=== PATIENT | female | born 2000 | race Caucasian/White ===

== ENCOUNTER 2021-07-31 15:57 | Emergency (ER) | payer MEDICAID | END 2021-07-31 17:20 | disposition left against medical advice (07) | LOC: EEVIPCON 15:58 → ER 15:58 | DX: Z53.21 Procedure and treatment not carried out due to patient leaving prior to being seen by health care provider (principal) ==

== ENCOUNTER 2022-10-02 01:32 | Emergency (ER) | payer MEDICAID ==
[~2022-10-02] VITALS: Ht 165.1 cm; Wt 50.0 kg
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
[2022-10-02] MEDS: acetaminophen 325mg tablet PO ONE (06:06)
[2022-10-02] MEDS: ibuprofen tablet 400 MG TABLET PO ONE (06:06)
[2022-10-02 06:10] VITALS: BP 126/75
== END 2022-10-02 06:26 | disposition home or self-care (01) ==
LOC: ER 01:33
DX: S00.11XA Contusion of right eyelid and periocular area, initial encounter (principal); S00.12XA Contusion of left eyelid and periocular area, initial encounter; R51.9 Headache, unspecified; F17.200 Nicotine dependence, unspecified, uncomplicated; F12.10 Cannabis abuse, uncomplicated; Y08.89XA Assault by other specified means, initial encounter; Y93.89 Activity, other specified; Y92.89 Other specified places as the place of occurrence of the external cause; Y99.8 Other external cause status
CPT/HCPCS: 70450; 99284

== ENCOUNTER 2023-03-03 19:03 | Emergency (ER) | payer MEDICAID ==
[~2023-03-03] VITALS: Ht 165.1 cm; Wt 56.8 kg
[2023-03-03 19:24] VITALS: BP 122/82
== END 2023-03-03 19:49 | disposition home or self-care (01) ==
LOC: ER 19:03
DX: S63.611A Unspecified sprain of left index finger, initial encounter (principal); F12.90 Cannabis use, unspecified, uncomplicated; Z72.89 Other problems related to lifestyle; X58.XXXA Exposure to other specified factors, initial encounter; Y93.89 Activity, other specified; Y92.89 Other specified places as the place of occurrence of the external cause; Y99.8 Other external cause status
CPT/HCPCS: 73140; 99283

== ENCOUNTER 2023-04-05 20:29 | Emergency (ER) | payer MEDICAID ==
[~2023-04-05] VITALS: Ht 165.1 cm; Wt 61.4 kg
[2023-04-05 20:35] VITALS: BP 143/83
== END 2023-04-05 22:13 | disposition home or self-care (01) ==
LOC: ER 20:29
DX: S62.601A Fracture of unspecified phalanx of left index finger, initial encounter for closed fracture (principal); F17.200 Nicotine dependence, unspecified, uncomplicated; F12.90 Cannabis use, unspecified, uncomplicated; X58.XXXA Exposure to other specified factors, initial encounter; Y93.89 Activity, other specified; Y92.89 Other specified places as the place of occurrence of the external cause; Y99.8 Other external cause status
CPT/HCPCS: 73130; 99283

== ENCOUNTER 2023-04-28 00:09 | Emergency (ER) | payer MEDICAID ==
[~2023-04-28] VITALS: Ht 165.1 cm; Wt 57.3 kg
[2023-04-28 00:16] VITALS: BP 145/93
[2023-04-28] MEDS ORDERED: TETanus/Pertussis (Acell)/Diphther VAC/PF (Tdap-Adult) 0.5ml syringe IMVAC ONE (01:40)
[2023-04-28] MEDS ORDERED: AMOX-117 PO (02:03)
[2023-04-28] MEDS ORDERED: LIDOcaine 1% W/epiNEPHrine 1:100,000 20ml vial IJ ONE (02:25)
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
[2023-04-28] MEDS ORDERED: HYDR-3965 PO (06:08)
== END 2023-04-28 06:19 | disposition home or self-care (01) ==
LOC: ER 00:09
DX: S81.851A Open bite, right lower leg, initial encounter (principal); F17.200 Nicotine dependence, unspecified, uncomplicated; F12.90 Cannabis use, unspecified, uncomplicated; W54.0XXA Bitten by dog, initial encounter; Y93.89 Activity, other specified; Y92.89 Other specified places as the place of occurrence of the external cause; Y99.8 Other external cause status
CPT/HCPCS: 12005; 73590; 90471; 90715; 99283; A6223; A6258; A6446; A6449

== ENCOUNTER 2023-06-30 20:35 | Emergency (ER) | payer MEDICAID ==
[~2023-06-30] VITALS: Ht 165.1 cm; Wt 53.6 kg
[2023-06-30 20:47] VITALS: BP 123/90; PULSE 112; RESP 18; TEMP 97.3; O2SAT 98
[2023-06-30] MEDS ORDERED: mag hydrox/Alum hydrox/simeth 30ml oral suspension PO ONE (21:50)
[2023-06-30] MEDS ORDERED: LIDOcaine Viscous 15ml cup MM ONE (21:50)
[2023-06-30] MEDS ORDERED: ondansetron 4mg rapidly disintigrating tab PO ONE (21:50)
[2023-06-30] MEDS ORDERED: diphenhydrAMINE 50 mg/ml inj IM ONE (22:40)
[2023-06-30] MEDS ORDERED: proCHLORperazine 10 MG/2 ml inj IM ONE (22:40)
[2023-06-30 22:48] LABS: ALANINE AMINOTRANSFERASE 78 U/L (12-78); ALBUMIN 3.9 G/DL (3.4-5.0); ALBUMIN/GLOBULIN RATIO 1.3 (1.1-1.5); ALKALINE PHOSPHATASE 66 IU/L (46-116); ANION GAP 11 (8-16); ASPARTATE AMINO TRANSFERASE 51 U/L (10-37); BILIRUBIN,TOTAL 0.3 MG/DL (0.1-1.0); BLOOD UREA NITROGEN 7 MG/DL (7-18); BUN/CREATININE RATIO 9.5 (10.0-20.0); CHLORIDE 104 MMOL/L (99-107); CREATININE 0.74 MG/DL (0.40-0.90); GLUCOSE 96 MG/DL (70-104); LIPASE < 50 U/L (73-393); POTASSIUM 3.7 MMOL/L (3.5-5.1); SODIUM 143 MMOL/L (135-145); TOTAL PROTEIN 6.8 G/DL (6.4-8.2); eCRCL 100 ML/MIN; eGFR > 90 ML/MIN
[2023-06-30 23:31] LABS: BASOPHILS % (AUTO) 0.4 % (0-1); EOSINOPHILS # (AUTO) 0.1 X10'3 (0-0.9); EOSINOPHILS % (AUTO) 2.3 % (0-6); HEMATOCRIT 42.9 % (35.0-45.0); HEMOGLOBIN 14.5 g/dl (12.0-16.0); MEAN CORPUSCULAR HEMOGLOBIN 33.3 PG (27.0-31.0); MEAN CORPUSCULAR HGB CONC 33.7 g/dL (33.0-36.5); MEAN CORPUSCULAR VOLUME 98.9 FL (78-98); MEAN PLATELET VOLUME 8.1 FL (7.4-10.4); MONOCYTES # (AUTO) 0.6 X10'3 (0-0.9); MONOCYTES % (AUTO) 9.2 % (2-12); NEUTROPHILS # (AUTO) 3.6 X10'3 (1.8-7.7); NEUTROPHILS % (AUTO) 56.1 % (42-75); PLATELET COUNT 225 X10'3 (140-440); RED BLOOD COUNT 4.34 X10'6 (4.20-5.60); RED CELL DISTRIBUTION WIDTH 12.9 % (11.5-14.5); WHITE BLOOD COUNT 6.4 X10'3 (4.5-11.0)
[2023-06-30] MEDS ORDERED: PANT20TA18 PO (23:50)
[2023-06-30 23:52] LABS: HCG SERUM QL NEGATIVE
== END 2023-07-01 | disposition home or self-care (01) ==
LOC: ER 20:36
DX: K29.00 Acute gastritis without bleeding (principal); F12.10 Cannabis abuse, uncomplicated
CPT/HCPCS: 36415; 80053; 83690; 84703; 85025; 93005; 96372; 99284; J0780; J1200

== ENCOUNTER 2023-07-16 13:13 | Emergency (ER) | payer MEDICAID ==
[~2023-07-16 13:13] MED LIST: PANT20TA18 PO
== END 2023-07-16 13:23 | disposition left against medical advice (07) ==
LOC: ER 13:13
DX: Z00.00 Encounter for general adult medical examination without abnormal findings (principal); Z53.21 Procedure and treatment not carried out due to patient leaving prior to being seen by health care provider

== ENCOUNTER 2023-07-16 18:18 | Emergency (ER) | payer MEDICAID ==
[~2023-07-16] VITALS: Ht 165.1 cm; Wt 45.0 kg
[2023-07-16 19:56] LABS: BASOPHILS % (AUTO) 0.6 % (0-1); EOSINOPHILS # (AUTO) 0.2 X10'3 (0-0.9); EOSINOPHILS % (AUTO) 2.9 % (0-6); HEMATOCRIT 45.6 % (35.0-45.0); HEMOGLOBIN 15.4 g/dl (12.0-16.0); LYMPHOCYTES # (AUTO) 1.6 X10'3 (1.1-4.8); LYMPHOCYTES % (AUTO) 23.6 % (21-51); MEAN CORPUSCULAR HEMOGLOBIN 33.9 PG (27.0-31.0); MEAN CORPUSCULAR HGB CONC 33.8 g/dL (33.0-36.5); MEAN CORPUSCULAR VOLUME 100.3 FL (78-98); MEAN PLATELET VOLUME 8.6 FL (7.4-10.4); MONOCYTES # (AUTO) 0.9 X10'3 (0-0.9); MONOCYTES % (AUTO) 13.4 % (2-12); NEUTROPHILS # (AUTO) 3.9 X10'3 (1.8-7.7); NEUTROPHILS % (AUTO) 59.5 % (42-75); PLATELET COUNT 175 X10'3 (140-440); RED BLOOD COUNT 4.55 X10'6 (4.20-5.60); RED CELL DISTRIBUTION WIDTH 13.5 % (11.5-14.5); WHITE BLOOD COUNT 6.6 X10'3 (4.5-11.0)
[2023-07-16 20:09] LABS: APTT 27 SECONDS (22-32)
[2023-07-16 20:10] LABS: INR 0.9 INR
[2023-07-16 20:11] VITALS: BP 128/85; PULSE 72; RESP 18; TEMP 98.6; O2SAT 97
== END 2023-07-16 20:34 | disposition home or self-care (01) ==
LOC: ER 18:18
DX: S80.12XA Contusion of left lower leg, initial encounter (principal); S80.11XA Contusion of right lower leg, initial encounter; S50.12XA Contusion of left forearm, initial encounter; S50.11XA Contusion of right forearm, initial encounter; F12.90 Cannabis use, unspecified, uncomplicated; Z72.89 Other problems related to lifestyle; R03.0 Elevated blood-pressure reading, without diagnosis of hypertension; R51.9 Headache, unspecified; Z79.899 Other long term (current) drug therapy; X58.XXXA Exposure to other specified factors, initial encounter; Y93.89 Activity, other specified; Y92.89 Other specified places as the place of occurrence of the external cause; Y99.8 Other external cause status
CPT/HCPCS: 36415; 85025; 85610; 85730; 99283

== ENCOUNTER 2024-07-01 19:42 | Emergency (ER) | payer MEDICAID ==
[~2024-07-01] VITALS: Ht 165.1 cm; Wt 56.8 kg
[2024-07-01 19:55] VITALS: BP 110/66; PULSE 111; RESP 19; TEMP 98.9; O2SAT 99
[2024-07-01] MEDS ORDERED: SULF1TAB49 PO (20:24)
== END 2024-07-01 20:47 | disposition home or self-care (01) ==
LOC: ER 19:43
DX: S30.850A Superficial foreign body of lower back and pelvis, initial encounter (principal); L08.9 Local infection of the skin and subcutaneous tissue, unspecified; X58.XXXA Exposure to other specified factors, initial encounter; W26.8XXA Contact with other sharp object(s), not elsewhere classified, initial encounter; Y93.89 Activity, other specified; Y92.89 Other specified places as the place of occurrence of the external cause; Y99.8 Other external cause status
CPT/HCPCS: 99283

== ENCOUNTER 2024-08-31 20:47 | Emergency (ER) | payer OTHER, MEDICAID ==
[~2024-08-31] VITALS: Ht 165.1 cm; Wt 54.5 kg
[~2024-08-31 20:47] MED LIST changes: -ACET-2615 PO; -IBUP-1984 PO
[2024-08-31 20:59] VITALS: BP 133/77; PULSE 88; TEMP 98.3; O2SAT 96
[2024-08-31 23:32] LABS: URINE HCG NEGATIVE (NEG)
[2024-08-31 23:56] VITALS: RESP 16
[2024-09-01] MEDS ORDERED: IBUP-1984 PO (01:21)
[2024-09-01] MEDS ORDERED: ACET-2615 PO (01:21)
[2024-09-01] MEDS: ibuprofen tablet 400 MG TABLET PO ONE (01:36)
[2024-09-01] MEDS: acetaminophen 325mg tablet PO ONE (01:37)
== END 2024-09-01 01:47 | disposition home or self-care (01) ==
LOC: ER 20:47
DX: S06.0X1A Concussion with loss of consciousness of 30 minutes or less, initial encounter (principal); S00.81XA Abrasion of other part of head, initial encounter; F12.90 Cannabis use, unspecified, uncomplicated; Z79.1 Long term (current) use of non-steroidal anti-inflammatories (NSAID); Z79.899 Other long term (current) drug therapy; V49.9XXA Car occupant (driver) (passenger) injured in unspecified traffic accident, initial encounter; Y93.89 Activity, other specified; Y92.89 Other specified places as the place of occurrence of the external cause; Y99.8 Other external cause status
CPT/HCPCS: 70450; 72125; 81025; 99284; L0172

== ENCOUNTER → 2024-08-31 | Emergency (ER) | payer MEDICAID ==
[~2024-08-31] VITALS: Ht 165.1 cm; Wt 40.5 kg
[~2024-08-31] MED LIST changes: +ACET-2615 PO; +IBUP-1984 PO
[2024-08-31 16:40] VITALS: BP 152/92; PULSE 121; RESP 18; TEMP 97.8; O2SAT 95
== END | disposition left against medical advice (07) ==
LOC: ER 16:34
DX: S00.83XA Contusion of other part of head, initial encounter (principal); M54.2 Cervicalgia; F12.90 Cannabis use, unspecified, uncomplicated; Z72.89 Other problems related to lifestyle; Z79.1 Long term (current) use of non-steroidal anti-inflammatories (NSAID); Z79.899 Other long term (current) drug therapy; V43.52XA Car driver injured in collision with other type car in traffic accident, initial encounter; Y93.89 Activity, other specified; Y92.410 Unspecified street and highway as the place of occurrence of the external cause; Y99.8 Other external cause status
CPT/HCPCS: 99283

== ENCOUNTER 2024-10-28 09:48 | Emergency (ER) | payer MEDICAID, OTHER ==
[~2024-10-28] VITALS: Ht 165.1 cm; Wt 58.2 kg
[2024-10-28 09:49] VITALS: BP 152/91; PULSE 114; TEMP 97.5; O2SAT 99
[2024-10-28] MEDS ORDERED: CEFTRIAXONE 500 MG VIAL IM STA (10:57)
[2024-10-28] MEDS: azithromycin 250mg tablet PO STA (11:20)
[2024-10-28] MEDS: CefTRIAXone 500MG IM Kit w/LIDOcaine IM ONE (11:23)
[2024-10-28 11:24] VITALS: RESP 18
== END 2024-10-28 11:26 | disposition home or self-care (01) ==
LOC: ER 09:48
DX: A54.9 Gonococcal infection, unspecified (principal); F12.90 Cannabis use, unspecified, uncomplicated; Z79.899 Other long term (current) drug therapy; Z72.89 Other problems related to lifestyle
CPT/HCPCS: 36415; 87491; 87591; 96372; 99283; J0696